=== PATIENT | male | born 1990 | race Caucasian/White ===

== ENCOUNTER 2018-09-05 20:02 | Emergency (ER) | payer OTHER ==
[~2018-09-05] VITALS: Ht 172.7 cm; Wt 113.4 kg
== END 2018-09-05 22:25 | disposition home or self-care (01) ==
LOC: ER 20:02
DX: S80.01XA Contusion of right knee, initial encounter (principal); W18.39XA Other fall on same level, initial encounter; Y93.89 Activity, other specified; Y92.89 Other specified places as the place of occurrence of the external cause; Y99.8 Other external cause status

== ENCOUNTER 2018-10-01 15:35 | Emergency (ER) | payer OTHER ==
[~2018-10-01] VITALS: Ht 172.7 cm; Wt 113.4 kg
[2018-10-01] MEDS ORDERED: MUCINEX1200 MG PO (21:38)
[2018-10-01] MEDS ORDERED: OSEL75CA PO (21:40)
== END 2018-10-01 21:58 | disposition home or self-care (01) ==
LOC: ER 15:35
DX: B34.9 Viral infection, unspecified (principal)

== ENCOUNTER 2019-10-30 18:03 | Emergency (ER) | payer OTHER ==
[~2019-10-30] VITALS: Ht 172.7 cm; Wt 123.4 kg
[~2019-10-30 18:03] MED LIST: MUCINEX1200 MG PO; OSEL75CA PO
== END 2019-10-30 21:20 | disposition home or self-care (01) ==
LOC: ER 18:03
DX: R06.02 Shortness of breath (principal); B96.0 Mycoplasma pneumoniae [M. pneumoniae] as the cause of diseases classified elsewhere